=== PATIENT | male | born 1965 | race African-American/Black ===

== ENCOUNTER → 2023-11-08 10:29 | Outpatient (REF) | payer BC, SELFPAY ==
[2023-11-08 11:22] LABS: Blood Urea Nitrogen 9 mg/dl (9-20); Calcium 9.3 mg/dl (8.4-10.2); Carbon Dioxide 27 mmol/L (22-30); Chloride 102 mmol/L (98-107); Glucose 118 mg/dl (70-99); Potassium 3.9 mmol/L (3.5-5.1); Sodium 136 mmol/L (135-145); eGFR > 60.00
== END ==
LOC: RAD 10:29
PROVIDERS: ATTENDING PHYSICIAN Nurse Practitioner
DX: R07.81 Pleurodynia (principal); R53.83 Other fatigue
CPT/HCPCS: 36415; 71260; 72072; 80048; Q9967